=== PATIENT | male | born 1955 ===

== ENCOUNTER 2017-06-13 08:31 | Emergency (ER) | payer BC ==
--- NOTE | 2017-06-13 08:46 | C.PDOC ---
History Of Present Illness 62M c/o right test pain and swelling x4 days. no dysuria or fever. no trauma. has not had this before. denies other sig pmh other than htn. Time Seen by Provider: 06/13/17 08:45 Chief Complaint (Nursing): Male Genitourinary Past Medical History Vital Signs: Last Vital Signs Temp 98.7 F 06/13/17 08:41 Pulse 63 06/13/17 08:41 Resp 18 06/13/17 08:41 BP 165/98 H 06/13/17 08:41 Pulse Ox 100 06/13/17 10:46 - Medical History PMH: HTN Family History: States: Other Other Family History: nc - Social History Hx Alcohol Use: No Hx Substance Use: No Review Of Systems Constitutional: Negative for: Fever, Chills, Malaise Cardiovascular: Negative for: Chest Pain Respiratory: Negative for: Cough, Shortness of Breath Gastrointestinal: Negative for: Nausea, Vomiting, Abdominal Pain Genitourinary: Positive for: Scrotal Pain. Negative for: Dysuria, Frequency, Penile Discharge, Penile Pain Physical Exam - Physical Exam Appears: Well, Non-toxic, No Acute Distress Skin: Warm, Dry Head: Atraumatic Nose: No Epistaxis Oral Mucosa: Moist Cardiovascular: Rhythm Regular Respiratory: No Decreased Breath Sounds, No Accessory Muscle Use Gastrointestinal/Abdominal: Soft, No Tenderness Male Genital: Testicular Tenderness (right), Testicular Swelling (right) Neurological/Psych: Oriented x3 ED Course And Treatment O2 Sat by Pulse Oximetry: 100 Medical Decision Making Medical Decision Makinam disc results and plan w pt who v/u. all questions and concerned addressed at this time. US - Testicular HISTORY: pain swelling TECHNIQUE: Realtime sonography through the scrotum with color and doppler flow. COMPARISON: None Available. FINDINGS: RIGHT TESTICLE: Measures approximately 4.3 x 3.0 x 3.5 cm. Normal echotexture and flow. RIGHT EPIDIDYMIS: Epididymal head measures approximately 3.2 x 1.3 x 1.6 cm and contains a small epididymal cyst that measures approximately 5 mm x 5 mm x 4 mm cm. . . Increased vascularity. Findings could represent epididymitis LEFT TESTICLE: Measures 4.1 x 2.5 x 2.8 cm. Normal echotexture and flow. LEFT EPIDIDYMIS: Epididymal head measures 0.9 x 1.5 x 0.9 cm. Grossly unremarkable appearance with normal flow. HYDROCELE: Complex bilateral hydroceles right-sided which contain septations. .There are 2 small round/elliptical shaped echogenic foci within the right-sided hydrocele and a similar small round/elliptical shaped echogenic focus within the left- sided hydrocele that may represent localized areas of postinflammatory sequela containing calcification VARICOCELE: Left-sided varicocele OTHER FINDINGS: None. IMPRESSION: Mildly enlarged right epididymis with increased vascularity consistent with epididymitis. . Complex bilateral hydroceles with what may represent a internal calcified postinflammatory debris. . Left-sided varicocele Disposition - Disposition Disposition: HOME/ ROUTINE Disposition Time: 11:24 Condition: GOOD Forms: [facility] ([place] Citizen) - Clinical Impression Clinical Impression: Epididymitis
[2017-06-13 09:28] LABS: URINE BILIRUBIN NEGATIVE (NEGATIVE); URINE BLOOD NEGATIVE (NEGATIVE); URINE COLOR Yellow (YELLOW); URINE GLUCOSE (UA) NORMAL (Normal); URINE KETONE NEGATIVE (NEGATIVE); URINE LEUKOCYTE ESTERASE NEG Leu/uL (Negative); URINE PROTEIN NEGATIVE (NEGATIVE); URINE UROBILINOGEN NORMAL mg/dL (0.2-1.0)
[2017-06-13 09:30] LABS: WBC URINE < 1 /hpf (0-5)
--- NOTE | 2017-06-13 10:35 | US ---
HISTORY: pain swelling TECHNIQUE: Realtime sonography through the scrotum with color and doppler flow. COMPARISON: None Available. FINDINGS: RIGHT TESTICLE: Measures approximately 4.3 x 3.0 x 3.5 cm. Normal echotexture and flow. RIGHT EPIDIDYMIS: Epididymal head measures approximately 3.2 x 1.3 x 1.6 cm and contains a small epididymal cyst that measures approximately 5 mm x 5 mm x 4 mm cm. . . Increased vascularity. Findings could represent epididymitis LEFT TESTICLE: Measures 4.1 x 2.5 x 2.8 cm. Normal echotexture and flow. LEFT EPIDIDYMIS: Epididymal head measures 0.9 x 1.5 x 0.9 cm. Grossly unremarkable appearance with normal flow. HYDROCELE: Complex bilateral hydroceles right-sided which contain septations. .There are 2 small round/elliptical shaped echogenic foci within the right-sided hydrocele and a similar small round/elliptical shaped echogenic focus within the left-sided hydrocele that may represent localized areas of postinflammatory sequela containing calcification VARICOCELE: Left-sided varicocele OTHER FINDINGS: None. IMPRESSION: Mildly enlarged right epididymis with increased vascularity consistent with epididymitis. . Complex bilateral hydroceles with what may represent a internal calcified postinflammatory debris. . Left-sided varicocele
[2017-06-13] MEDS ORDERED: cefTRIAXone (Rocephin) 250 mg Inj IM STA (11:24)
[2017-06-13 12:20] VITALS: BP 150/63; PULSE 68; RESP 16; TEMP 97.8; O2SAT 99
== END 2017-06-13 12:20 | disposition home or self-care (01) ==
LOC: C.ER 08:31
DX: N45.1 Epididymitis (principal)
CPT/HCPCS: 76870; 81001; 87086; 87491; 87591; 96372; 99284; J0696; J1885